=== PATIENT | male | born 1950 | race Caucasian/White ===

== ENCOUNTER 2017-12-27 10:02 | Day surgery (SDC) | payer MEDICARE, BC ==
[~2017-12-27 10:02] MED LIST: Sodium Chloride 0.9% 5 ML Syringe FLUSH PRN
[2017-12-27] MEDS ORDERED: Midazolam 1 MG/ML 2 ML SDV ONE (10:03)
[2017-12-27] MEDS ORDERED: Propofol 200 MG/20 ML SDV ONE (10:03)
[2017-12-27] MEDS: Lactated Ringers 1,000 ML IV SCH (10:23)
[2017-12-27] MEDS ORDERED: Midazolam 1 MG/ML 2 ML SDV IV ONE (11:25)
[2017-12-27] MEDS ORDERED: Propofol 200 MG/20 ML SDV IV ONE (11:25)
--- NOTE | 2017-12-27 11:51 | PCM.OPNOTE ---
- General Post-Op/Procedure Note Date of Surgery/Procedure: 12/27/17 Operative Procedure(s): Colonoscopy. Findings: Normal colonoscopy. No lesions could be seen to account for the blood in the stool. Pre Op Diagnosis: Rectal bleeding Hemoccult-positive stools Post-Op Diagnosis: As above Anesthesia Technique: MAC Primary Surgeon: Reggie Cardoza Condition: Good Free Text/Narrative:: INFORMED CONSENT: Patient is here today for elective colonoscopy. All aspects of this procedure have been discussed with the patient. All possible complications also, including possibility of perforation, infection, pain, bleeding and unknown complications. In the event of perforation patient may need to have abdominal exploration, colon resection, colostomy and even was discussed. Anesthetic complications were handled by anesthesia department. The patient understands fully well. Patient did not have any further questions for me at the end of my interview. The patient wishes for me to proceed. PREOPERATIVE DIAGNOSIS/INDICATIONS: [Hemoccult-positive stool] POSTOPERATIVE DIAGNOSIS: [Normal colonoscopy] INSTRUMENT USED: Olympus videocolonoscope. ASA CLASSIFICATION: [2] ANESTHESIA: Continuous EKG, oximetry and intermittent blood pressure and respiratory monitoring were performed throughout the procedure. IV Versed and Fentanyl were administered. PROCEDURE PERFORMED: Colonoscopy POSITIONS OF PATIENT: Left lateral. RECTUM: Normal. SIGMOID COLON: Normal. DESCENDING COLON: Normal. SPLENIC FLEXURE: Normal. TRANSVERSE COLON: Normal. HEPATIC FLEXURE: Normal. ASCENDING COLON: Normal. CECUM: Normal. ILEOCECAL VALVE: Normal. BIOPSY: None. TOLERANCE: Excellent. COMPLICATIONS: None.
[2017-12-27 13:38] VITALS: BP 111/71
== END 2017-12-27 13:30 | disposition home or self-care (01) ==
LOC: KA.SDS 10:02
PROVIDERS: ATTEND Family Medicine
DX: R19.5 Other fecal abnormalities (principal); K21.9 Gastro-esophageal reflux disease without esophagitis; E78.5 Hyperlipidemia, unspecified; E78.00 Pure hypercholesterolemia, unspecified; F34.1 Dysthymic disorder; F32.9 Major depressive disorder, single episode, unspecified; M71.521 Other bursitis, not elsewhere classified, right elbow; Z79.1 Long term (current) use of non-steroidal anti-inflammatories (NSAID); Z79.899 Other long term (current) drug therapy; Z88.7 Allergy status to serum and vaccine; Z88.8 Allergy status to other drugs, medicaments and biological substances
CPT/HCPCS: 00811; J2250; J2704; J7120

== ENCOUNTER 2023-03-24 10:47 | Emergency (ER) | payer MEDICARE, OTHER ==
[2023-03-24 11:34] VITALS: BP 153/94; PULSE 85
[2023-03-24 11:41] LABS: ALBUMIN 3.1 g/dL (3.40-5.00); ANION GAP 16.4 mmol/L (5-15); BILIRUBIN TOTAL 0.3 mg/dL (0.2-1.0); CALCIUM 8.1 mg/dL (8.7-10.3); CARBON DIOXIDE,CO2 18.2 mmol/L (21.0-32.0); CREATININE 1.18 mg/dL (0.51-1.17); EST CRCL DRUG DOSING (CG) 49.56 mL/min; POTASSIUM,K 3.6 mmol/L (3.5-5.1); PROTEIN TOTAL,TP 6.1 g/dL (6.4-8.2)
[2023-03-24 11:42] LABS: BASOPHILS ABSOLUTE AUTO 0.05 10^3/uL (0.00-0.10); BASOPHILS PERCENT AUTO 0.6 % (0.0-1.0); EOSINOPHILS ABSOLUTE AUTO 0.64 10^3/uL (0.10-0.30); EOSINOPHILS PERCENT AUTO 7.1 % (1.0-3.0); HEMATOCRIT 36.6 % (40.0-52.0); HEMOGLOBIN 12.4 g/dL (13.0-17.0); IMMATURE GRAN ABSOLUTE AUTO 0.16 10^3/uL (0.00-0.50); IMMATURE GRAN PERCENT AUTO 1.8 % (0.0-5.0); LYMPHOCYTES ABSOLUTE AUTO 3.26 10^3/uL (1.00-4.00); LYMPHOCYTES PERCENT AUTO 35.9 % (20.0-40.0); MEAN CORPUSCULAR HEMOGLOBIN 32.5 pg (27.0-31.0); MEAN CORPUSCULAR HGB CONC 33.9 g/dL (32.0-36.0); MEAN CORPUSCULAR VOLUME 96.1 fL (82.0-92.0); MEAN PLATELET VOLUME 8.6 fL (7.4-10.4); MONOCYTES ABSOLUTE AUTO 0.67 10^3/uL (0.10-0.80); MONOCYTES PERCENT AUTO 7.4 % (2.0-8.0); NEUTROPHILS ABSOLUTE AUTO 4.29 10^3/uL (2.50-7.00); NEUTROPHILS PERCENT AUTO 47.2 % (50.0-70.0); PLATELET COUNT,PLT 274 10^3/uL (150-400); RED BLOOD CELL COUNT 3.81 10^6/uL (4.50-6.00); RED CELL DISTRIBUTION WIDTH 12.6 % (11.5-14.5); WHITE BLOOD CELL COUNT,WBC 9.07 10^3/uL (5.00-10.00)
[2023-03-24] MEDS: Ondansetron 4 MG/2 ML SDV IVPUSH ONE (12:47)
[2023-03-24] MEDS: fentaNYL 100 MCG/2 ML SDV IVPUSH ONE (12:49)
[2023-03-24] MEDS: fentaNYL 100 MCG/2 ML SDV ONE (13:08)
[2023-03-24 13:12] LABS: APPEARANCE,URINE CLEAR (CLEAR); BILIRUBIN,URINE NEGATIVE (NEGATIVE); COLOR,URINE YELLOW (YELLOW); GLUCOSE,URINE NEGATIVE (NEGATIVE); KETONES,URINE 15 mg/dL (NEGATIVE); LEUKOCYTE ESTERASE,URINE NEGATIVE (NEGATIVE); NITRITE,URINE NEGATIVE (NEGATIVE); OCCULT BLOOD,URINE MODERATE (NEGATIVE); PH,URINE 5.5 (5.0-9.0); PROTEIN,URINE 100 mg/dL (NEGATIVE); UROBILINOGEN,URINE 0.2 E.U./dL (0.2-1.0)
[2023-03-24] MEDS: Ondansetron 4 MG/2 ML SDV ONE (13:12)
[2023-03-24 13:21] LABS: BACTERIA,URINE RARE /HPF (NONE TO FEW); EPITHELIAL CELLS,URINE RARE /LPF; WBC,URINE 0-5 /HPF (0-5)
== END 2023-03-24 13:05 ==
LOC: KA.ED 10:47
DX: S06.5X9A Traumatic subdural hemorrhage with loss of consciousness of unspecified duration, initial encounter (principal); S02.119A Unspecified fracture of occiput, initial encounter for closed fracture; S02.19XA Other fracture of base of skull, initial encounter for closed fracture; G93.89 Other specified disorders of brain; G89.29 Other chronic pain; M54.50 Low back pain, unspecified; E78.00 Pure hypercholesterolemia, unspecified; Z79.899 Other long term (current) drug therapy; Z88.8 Allergy status to other drugs, medicaments and biological substances; Z88.7 Allergy status to serum and vaccine; W13.2XXA Fall from, out of or through roof, initial encounter; Y92.009 Unspecified place in unspecified non-institutional (private) residence as the place of occurrence of the external cause
CPT/HCPCS: 36415; 51702; 70450; 71045; 72020; 72125; 72170; 80053; 81001; 85025; 96361; 96374; 96375; 99285; 99285-25; J2405; J3010